=== PATIENT | female | born 1995 | race Caucasian/White ===

== ENCOUNTER 2021-07-23 22:43 | Emergency (ER) | payer OTHER ==
[2021-07-24] MEDS ORDERED: ACETAMINOPHEN 500 MG TAB ONE (04:33)
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
[2021-07-24 06:42] VITALS: TEMP 97.3; O2SAT 100
[2021-07-24 06:43] VITALS: BP 136/84
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
== END 2021-07-24 06:35 | disposition home or self-care (01) ==
LOC: ER 22:43
DX: S50.12XA Contusion of left forearm, initial encounter (principal); V43.52XA Car driver injured in collision with other type car in traffic accident, initial encounter; Y93.89 Activity, other specified; Y92.410 Unspecified street and highway as the place of occurrence of the external cause
CPT/HCPCS: 70450; 72125; 99284